=== PATIENT | female | born 1995 | race Caucasian/White ===

== ENCOUNTER → 2017-06-23 | Outpatient (CLI) | payer OTHER ==
[~2017-06-23] MED LIST: FERR1TAB62 MT; PRENTAB26 PO
== END | disposition home or self-care (01) ==
LOC: C.LABSPEC 14:28
PROVIDERS: ATTEND Obstetrics & Gynecology
DX: Z34.83 Encounter for supervision of other normal pregnancy, third trimester (principal)

== ENCOUNTER 2017-07-22 02:06 | Inpatient (IN) | payer OTHER ==
[2017-07-22] VITALS (16 sets, daily range): BP systolic 124–138; BP diastolic 74–77; PULSE 64–80; TEMP 36.4–37.5; O2SAT 94–98; Ht 162.6 cm; Wt 105.5 kg
[~2017-07-22] VITALS: Ht 162.6 cm; Wt 105.5 kg
[2017-07-22] MEDS ORDERED: LACTATED RINGER'S 1000ML 1,000 ML IV PRN (04:37)
[2017-07-22] MEDS ORDERED: LACTATED RINGER'S 1000ML 1,000 ML IV SCH (04:37)
[2017-07-22] MEDS ORDERED: PENICILLIN G POTASSIUM IV 3 MU in DEXTROSE 5% 100ML 100 ML IV PRN (04:45)
[2017-07-22] MEDS ORDERED: PENICILLIN G POTASSIUM IV 6 MU in DEXTROSE 5% 250ML 250 ML IV ONE (04:45)
[2017-07-22 05:12] LABS: HEMATOCRIT 39.8 % (37-47); HEMOGLOBIN 13.9 g/dL (12.0-16.0); MEAN CELL VOLUME 88.4 fL (80-100); MEAN CORPUSCULAR HEMOGLOBIN 30.9 pg (25-34); MEAN CORPUSCULAR HGB CONC 34.9 g/dl (32-36); PLATELET COUNT 219 K/uL (130-400); RED CELL DISTRIBUTION WIDTH CV 14.4 % (11.5-14.5); RED CELL DISTRIBUTION WIDTH SD 46.7 fL (36.4-46.3); WHITE BLOOD COUNT 14.33 K/uL (4.8-10.8)
[2017-07-22] MEDS ORDERED: CITRIC ACID/SODIUM CITRATE 15 ML UDC PO ONE (05:30)
[2017-07-22] MEDS ORDERED: OXYTOCIN INJ 10 UNITS/ML VIAL ONE ×4 (05:40→06:19)
[2017-07-22] MEDS ORDERED: MoRPHine SULFATE PF 1 MG/ML 10 ML AMP/VIAL ONE (05:46)
[2017-07-22] MEDS ORDERED: FENTANYL CITRATE INJ 50 MCG/1 ML 2 ML VIAL ONE (05:46)
[2017-07-22] MEDS ORDERED: CLINDAMYCIN IV 900 MG in DEXTROSE 5% 100ML 100 ML IV SCH (06:00)
[2017-07-22] MEDS ORDERED: NALOXONE HCL INJ 1 MG in SODIUM CHLORIDE 0.9% 1000ML 1,000 ML IV PRN ×2 (06:16→07:10)
[2017-07-22] MEDS ORDERED: NALOXONE HCL INJ 0.08 MG in SYRINGE 1.8 ML IV PRN ×2 (06:16→07:10)
[2017-07-22] MEDS ORDERED: LACTATED RINGER'S 1000ML 500 ML IV PRN ×2 (06:16→07:10)
[2017-07-22] MEDS ORDERED: SODIUM CHLORIDE 0.9% 1000ML 1,000 ML IV PRN ×2 (06:16→07:10)
[2017-07-22] MEDS ORDERED: NALBUPHINE HCL INJ 10 MG/ML AMP IV PRN ×2 (06:30→07:15)
[2017-07-22] MEDS ORDERED: KETOROLAC TROMETHAMINE 30 MG/ML VIAL IV. PRN ×2 (06:30→23:59)
[2017-07-22] MEDS ORDERED: EpHEDrine SULFATE INJ 50 MG/ML AMP IV PRN ×3 (06:30→07:15)
[2017-07-22] MEDS ORDERED: MoRPHine SULFATE PF 1 MG/ML 10 ML AMP/VIAL EPI PRN ×2 (06:30→07:15)
[2017-07-22] MEDS ORDERED: MoRPHine SULFATE 2 MG/ML CARP IV PRN ×2 (06:30→07:15)
[2017-07-22] MEDS ORDERED: MEPERIDINE HCL 25 MG/ML CARP IV PRN (06:30)
[2017-07-22] MEDS ORDERED: DiphenhydrAMINE HCL 50 MG/ML VIAL IV PRN ×3 (06:30→23:59)
[2017-07-22] MEDS ORDERED: NO NARCOTICS OR SEDATIVES SCH ×2 (06:30→07:15)
[2017-07-22] MEDS ORDERED: ONDANSETRON INJ 2 MG/ML 2 ML VIAL IV PRN ×4 (06:30→23:59)
[2017-07-22] MEDS ORDERED: NALOXONE HCL 0.4 MG/1 ML VIAL/CARP IV PRN ×2 (06:30→07:15)
[2017-07-22] MEDS ORDERED: PHENYLEPHRINE 100MCG/ML 5ML SYR ONE (06:31)
--- NOTE | 2017-07-22 06:31 | HISTORY & PHYSICAL EXAMINATION ---
DATE OF ADMISSION: 07/22/2017 CHIEF COMPLAINT: Intrauterine , 39+ weeks gestation, elvira breech presentation. HISTORY OF PRESENT ILLNESS: The patient is a 21-year-old 2, para 1, general health is good, due date is 07/25/2017, has had no problems. She delivered her first child in 2012, 7 pounds 1 ounce female at 39 weeks, pushed for only 20 minutes. Present she was admitted in labor. She was walked for a while, she started to dilate. She went from about 3-5, was given IV penicillin for positive beta strep status. When I checked her, membranes were tight and bulging. Once the membranes ruptured, you could feel that she had a elvira breech presentation and presently being scheduled for a stat section. ALLERGIES: SHE IS ALLERGIC TO CEPHALOSPORINS. PAST SURGICAL HISTORY: She had her wisdom teeth removed. PAST MEDICAL HISTORY: She has a girl, 4 years old in good health. SOCIAL HISTORY: No smoking. No excessive alcohol intake. Works as a nurse in [employer]. FAMILY HISTORY: Mom is 50 in good health. Father is 50 in good health. Two sisters in good health. REVIEW OF SYSTEMS: HEAD: No symptoms of frequent or severe headaches. EYES: No symptoms of blurred vision or double vision. EARS: No symptoms of frequent ear infections, difficulty hearing. NOSE: No symptoms of frequent nosebleeds, difficulty breathing through her nose. THROAT: No symptoms of frequent or severe sore throats, difficulty swallowing. RESPIRATORY SYSTEM: No history of asthma, chest pain, shortness of breath. PHYSICAL EXAMINATION: GENERAL: Well developed, well-nourished 21-year-old white female, alert, oriented x3, cooperative in no acute distress, appears stated age. EYES: Conjunctivae are pink, sclerae white, no evidence of jaundice. EARS: Had normal light reflex bilaterally. HEART: Had regular rhythm, S2 and S1 are normal. BREASTS: Normal. ABDOMEN: Consistent with a term size fetus. PELVIC: Revealed elvira breech presentation at 6 cm at about a -3 station. MUSCULOSKELETAL: Revealed no calf tenderness. IMPRESSIONS OF THIS CASE: Breech presentation, active labor.
[2017-07-22] MEDS ORDERED: ONDANSETRON INJ 2 MG/ML 2 ML VIAL ONE (06:50)
[2017-07-22] MEDS ORDERED: MAGNESIUM HYDROXIDE SUSP 30 ML UDC PO PRN (07:00)
[2017-07-22] MEDS ORDERED: SUPERCREAM 0.870 % 15GM JAR EXT PRN (07:00)
[2017-07-22] MEDS ORDERED: BENZOCAINE 20% AER SPR 82.5 GM CAN EXT PRN (07:00)
[2017-07-22] MEDS ORDERED: LANOLIN OINT EXT PRN (07:00)
[2017-07-22] MEDS ORDERED: SENNA 8.6 MG TAB PO PRN (07:00)
[2017-07-22] MEDS ORDERED: DIPHTHERIA/TETANUS/PERTUSSIS 0.5 ML SYR/VIAL IM. ONE (07:00)
[2017-07-22] MEDS ORDERED: HYDROCORTISONE ACETATE 25 MG SUPP PR PRN (07:00)
--- NOTE | 2017-07-22 07:11 | OPERATIVE REPORT ---
DATE OF OPERATION: 07/22/2017 INDICATIONS FOR SURGERY: Uriel breech presentation, active labor. PREOPERATIVE DIAGNOSIS: Uriel breech presentation, active labor. POSTOPERATIVE DIAGNOSES: Same, delivered a live female , breech presentation confirmed. SURGEON: Samantha Hernandez MD. DIE TRIMMER: Fazal Haynes MD. ESTIMATED BLOOD LOSS: 700 mL. ANESTHESIA: Spinal. OPERATIVE FINDINGS AND PROCEDURE: The patient was brought to the OR table, correctly identified by armband and conversation. Compression stockings had been applied. Powell catheter had been inserted aseptically in the bladder connected to gravity drainage. Spinal anesthesia was administered. The patient was positioned on the OR table. Lower abdomen and umbilical area where painted with Betadine and draped in usual sterile fashion. Adequacy of the anesthesia was tested. Pfannenstiel incision was made, carried down to the anterior fascia by sharp dissection. Hemostasis was secured by electrocauterization. Fascia was incised transversely from the underlying muscle by blunt and sharp dissection. Recti muscles were in the midline exposing the peritoneum which was carefully raised and entered. Bladder blade was used to expose the lower uterine segment. An incision was made above the vesicouterine fold. Bladder was undermined bluntly and pushed out of the operative field. Lower uterine segment was scored with a knife and then entered with scissors. Clear amniotic fluid was seen coming through the incision at this time. Uriel breech presentation was noted. The breech was delivered, then the chest, the 2 arms were reduced and then the head was delivered. Cord was clamped and cut and the infant was attended to by the communications maintainer, Dr. Wilson who scrubbed and present at the time of delivery. Cord blood was taken. Placenta was removed manually. Uterus, tubes, and ovaries were removed from the abdominal cavity. Uterine cavity was wiped clean with a clean sponge. The myometrial defect was grasped with a ring forceps and then a chromic gut suture was used to approximate the myometrial defect with continuous interlocking sutures of chromic. Following this, a heavy suture of Vicryl was used to approximate the fascial layer over the myometrial approximation and a horizontal suture was placed below the myometrial defect on the left side to control the bleeding and about 3 [id number] sutures of Vicryl used to further approximate the myometrial edges. After good hemostasis, peritoneal edges were restored with a running 3-0 chromic. The pelvis was cleansed of all blood clots and debris. Suture line was checked and found to be hemostatic. Uterus, tubes, and ovaries were reinserted into the abdominal cavity and careful anatomical approximation of the anterior abdominal wall was performed. Peritoneum was closed with a mattress suture of chromic catgut. Recti muscles were approximated with interrupted [id number] suture of chromic catgut. The fascia was closed with continuous interlocking suture of Vicryl on each side, tied in the midline. SubQ was approximated with a running plain and skin edges were approximated with staple clips. I attest to the content of the Intraoperative Record and any orders documented therein. Any exception s are noted below.
[2017-07-22] MEDS ORDERED: PROMETHAZINE HCL INJ 25 MG in SODIUM CHLORIDE 0.9% 50ML 50 ML IV PRN (07:15)
[2017-07-22] MEDS ORDERED: ACETAMINOPHEN IV 100 ML IV PRN (07:15)
[2017-07-22] MEDS ORDERED: ATROPINE SULFATE 0.1 MG/ML 5ML SYR IV PRN (07:15)
[2017-07-22] MEDS: PRENATAL VITAMIN TAB PO SCH (08:00)
[2017-07-22] MEDS: FERROUS SULFATE 325 MG TAB PO SCH (08:00)
[2017-07-22] MEDS: DOCUSATE SODIUM 100 MG CAP PO SCH ×2 (08:00→20:08)
[2017-07-22] MEDS: OXYTOCIN INJ 20 UNITS in LACTATED RINGER'S 1000ML 1,000 ML IV SCH ×2 (08:51→17:42)
[2017-07-22] MEDS: SIMETHICONE 80 MG CHEW PO SCH ×4 (08:57→20:08)
--- NOTE | 2017-07-22 10:04 | Anesthesiology Progress Note ---
Anesthesia Post Op Note Date & Time Jul 22, 2017 at 10:03 Notes Mental Status: alert / awake / arousable, participated in evaluation Pt Amnestic to Procedure: Yes Nausea / Vomiting: improving with treatment Pain: adequately controlled Airway Patency, RR, SpO2: stable & adequate BP & HR: stable & adequate Hydration State: stable & adequate Neuraxial Anesthesia: was administered, sensory block is resolving Anesthetic Complications: no major complications apparent
[2017-07-22] MEDS: KETOROLAC TROMETHAMINE 30 MG/ML VIAL IV. PRN ×2 (11:29→17:06)
--- NOTE | 2017-07-22 13:49 | Anesthesia Procedure Note ---
Anesthesia Epidural Removal Nt Date & Time Jul 22, 2017 at 13:47 Vital Signs Pain Intensity: 4.0 Vital Signs Past 12 Hours Date Time Temp Pulse Resp B/P (MAP) Pulse Ox O2 Delivery O2 Flow Rate FiO2 07/22/17 12:30 20 95 07/22/17 12:30 36.4 73 20 126/77 (93) 94 Room Air 07/22/17 11:30 20 97 07/22/17 10:30 18 95 07/22/17 10:00 36.7 67 18 125/76 (92) 97 Room Air 07/22/17 09:30 98 Room Air 07/22/17 09:30 36.4 64 18 124/74 (91) 98 Room Air 07/22/17 09:30 18 98 Notes Mental Status: alert / awake / arousable, participated in evaluation Nausea / Vomiting: adequately controlled Pain: adequately controlled Airway Patency, RR, SpO2: stable & adequate BP & HR: stable & adequate Hydration State: stable & adequate Neuraxial Anesthesia: was administered, sensory block is resolving Anesthetic Complications: no major complications apparent, pt satisfied with anesthetic care Epidural: removed without complications, with tip intact
[2017-07-22] MEDS ORDERED: NURSING VERBAL MED ORDER ONE (18:30)
[2017-07-22] MEDS: CALCIUM CARBONATE 500 MG CHEWABLE PO PRN (21:27)
[2017-07-22] MEDS ORDERED: OXYCODONE/ACETAMINOPHEN 5-325 TAB PO PRN (23:59)
[2017-07-22] MEDS ORDERED: DC INTRASPINAL MORPHINE ONE (23:59)
[2017-07-22] MEDS ORDERED: MEPERIDINE HCL 50 MG/ML CARP IV PRN ×2 (23:59)
[2017-07-22] MEDS ORDERED: ZOLPIDEM TARTRATE 5 MG TAB PO PRN (23:59)
[2017-07-23 01:00] VITALS: BP_SYST 127; BP_SYST 128; BP_DIAS 78; PULSE 91; TEMP 37.4; O2SAT 98
[2017-07-23] MEDS: IBUPROFEN 600 MG TAB PO PRN ×5 (01:00→21:28)
[2017-07-23] MEDS: OXYTOCIN INJ 20 UNITS in LACTATED RINGER'S 1000ML 1,000 ML IV SCH (01:54)
[2017-07-23] MEDS: CALCIUM CARBONATE 500 MG CHEWABLE PO PRN (01:55)
[2017-07-23] MEDS ORDERED: KETOROLAC TROMETHAMINE 30 MG/ML VIAL IV. PRN (02:00)
[2017-07-23] MEDS ORDERED: DiphenhydrAMINE HCL 50 MG/ML VIAL IV PRN (02:00)
[2017-07-23] MEDS ORDERED: OXYCODONE/ACETAMINOPHEN 5-325 TAB PO PRN ×2 (02:00)
[2017-07-23] MEDS ORDERED: DC INTRASPINAL MORPHINE ONE (02:00)
[2017-07-23] MEDS ORDERED: ONDANSETRON INJ 2 MG/ML 2 ML VIAL IV PRN (02:00)
[2017-07-23] MEDS ORDERED: ZOLPIDEM TARTRATE 5 MG TAB PO PRN (02:00)
[2017-07-23] MEDS ORDERED: MEPERIDINE HCL 50 MG/ML CARP IV PRN ×2 (02:00)
[2017-07-23 04:20] VITALS: BP 116/70; PULSE 80; TEMP 37.4; O2SAT 95
[2017-07-23 06:04] LABS: BASO % 0.1 %; BASO ABS # 0.02 K/uL (0-0.2); EOS % 0.4 %; EOS ABS # 0.06 K/uL (0-0.5); HEMATOCRIT 32.7 % (37-47); IG# 0.05 K/uL (0.00-0.02); LYMPH % 13.8 %; LYMPH ABS # 1.86 K/uL (1.2-3.4); MEAN CELL VOLUME 88.4 fL (80-100); MEAN CORPUSCULAR HEMOGLOBIN 29.7 pg (25-34); MEAN CORPUSCULAR HGB CONC 33.6 g/dl (32-36); MEAN PLATELET VOLUME 9.4 fL (7.4-10.4); MONO % 8.4 %; MONO ABS # 1.13 K/uL (0.11-0.59); NEUT % 76.9 %; NEUT ABS # 10.32 K/uL (1.4-6.5); PLATELET COUNT 178 K/uL (130-400); RED CELL DISTRIBUTION WIDTH CV 14.6 % (11.5-14.5); RED CELL DISTRIBUTION WIDTH SD 47.1 fL (36.4-46.3); WHITE BLOOD COUNT 13.44 K/uL (4.8-10.8)
[2017-07-23 07:30] VITALS: BP 122/76; PULSE 85; TEMP 36.8; O2SAT 98
--- NOTE | 2017-07-23 09:00 | Progress Note ---
Subjective Jul 23, 2017. Subjective conversation w/ patient Ambulation: ambulating normally Voiding: no voiding problems Passing Gas: No Diet Tolerance: Clear Liquids Lochia: Small Feeding Type: Breast Feeding Review of Systems Constitutional: + fever Objective Vital Signs Date Time Temp Pulse Resp B/P (MAP) Pulse Ox O2 Delivery O2 Flow Rate FiO2 07/23/17 04:20 37.4 80 18 116/70 (85) 95 Room Air 07/23/17 01:00 37.4 91 18 127/78 (94) 98 Room Air 07/23/17 01:00 98 Room Air 07/22/17 23:15 18 96 07/22/17 22:30 18 96 07/22/17 21:15 16 95 07/22/17 20:20 18 94 07/22/17 19:30 37.5 71 18 138/77 (97) 97 Room Air 07/22/17 19:30 18 97 07/22/17 18:15 20 95 07/22/17 17:20 18 96 07/22/17 16:20 20 95 07/22/17 15:20 36.8 80 18 128/76 (93) 97 Room Air 07/22/17 15:20 18 97 07/22/17 15:20 97 Room Air 07/22/17 14:30 20 97 07/22/17 13:30 18 95 07/22/17 12:30 20 95 07/22/17 12:30 36.4 73 20 126/77 (93) 94 Room Air 07/22/17 11:30 20 97 07/22/17 10:30 18 95 07/22/17 10:00 36.7 67 18 125/76 (92) 97 Room Air 07/22/17 09:30 98 Room Air 07/22/17 09:30 36.4 64 18 124/74 (91) 98 Room Air 07/22/17 09:30 18 98 Physical Exam General Appearance: WELL-APPEARING Respiratory/Chest: lungs clear Abdomen: non tender, + abnormal bowel sounds Fundus: Firm, Non-Tender Incision Description: Clean, Dry & Intact Extremities: no pedal edema, no calf tenderness Laboratory Results Last 24 Hours Test 07/23/17 05:49 White Blood Count 13.44 K/uL Red Blood Count 3.70 M/uL Hemoglobin 11.0 g/dL Hematocrit 32.7 % Mean Corpuscular Volume 88.4 fL Mean Corpuscular Hemoglobin 29.7 pg Mean Corpuscular Hemoglobin Concent 33.6 g/dl Platelet Count 178 K/uL Mean Platelet Volume 9.4 fL Neutrophils (%) (Auto) 76.9 % Lymphocytes (%) (Auto) 13.8 % Monocytes (%) (Auto) 8.4 % Eosinophils (%) (Auto) 0.4 % Basophils (%) (Auto) 0.1 % Neutrophils # (Auto) 10.32 K/uL Lymphocytes # (Auto) 1.86 K/uL Monocytes # (Auto) 1.13 K/uL Eosinophils # (Auto) 0.06 K/uL Basophils # (Auto) 0.02 K/uL RDW Standard Deviation 47.1 fL RDW Coefficient of Variation 14.6 % Immature Granulocyte % (Auto) 0.4 % Immature Granulocyte # (Auto) 0.05 K/uL Assessment and Plan Post-Op Day#: 1 Continue Routine Care: hypoactive bowel sounds
[2017-07-23] MEDS: PRENATAL VITAMIN TAB PO SCH (09:01)
[2017-07-23] MEDS: DOCUSATE SODIUM 100 MG CAP PO SCH ×2 (09:01→20:28)
[2017-07-23] MEDS: FERROUS SULFATE 325 MG TAB PO SCH (09:01)
[2017-07-23] MEDS: SIMETHICONE 80 MG CHEW PO SCH ×4 (09:01→20:28)
[2017-07-23] MEDS: OXYCODONE/ACETAMINOPHEN 5-325 TAB PO PRN ×3 (09:02→21:28)
[2017-07-23 15:30] VITALS: BP 111/72; PULSE 79; TEMP 37.3; O2SAT 95; O2SAT 96
[2017-07-23] MEDS ORDERED: BISACODYL 5 MG TABEC PO ONE (22:00)
[2017-07-23 23:45] VITALS: BP 120/70; PULSE 80; TEMP 36.8; O2SAT 95
[2017-07-24] MEDS: IBUPROFEN 600 MG TAB PO PRN ×3 (02:22→10:36)
[2017-07-24] MEDS: OXYCODONE/ACETAMINOPHEN 5-325 TAB PO PRN ×4 (02:22→10:36)
[2017-07-24] MEDS ORDERED: COUGH DROP (SUGAR FREE) LOZ 24 LOZ/1 BOX LOZ ONE (04:34)
[2017-07-24] MEDS ORDERED: BISACODYL 10 MG SUPP PR PRN (07:00)
--- NOTE | 2017-07-24 07:56 | Progress Note ---
Subjective Jul 24, 2017. Subjective conversation w/ patient Ambulation: ambulating normally Voiding: no voiding problems Passing Gas: Yes Diet Tolerance: Regular Diet Lochia: Small Feeding Type: Breast Feeding Review of Systems Constitutional: + fever Objective Vital Signs Date Time Temp Pulse Resp B/P (MAP) Pulse Ox O2 Delivery O2 Flow Rate FiO2 07/23/17 23:45 95 Room Air 07/23/17 23:45 36.8 80 18 120/70 (87) 95 Room Air 07/23/17 15:30 96 Room Air 07/23/17 15:30 37.3 79 18 111/72 (85) 95 Room Air Physical Exam General Appearance: WELL-APPEARING Respiratory/Chest: lungs clear Abdomen: normal bowel sounds, non tender Fundus: Firm, Non-Tender Incision Description: Clean, Dry & Intact Extremities: no pedal edema, no calf tenderness Assessment and Plan Post-Op Day#: 2
--- NOTE | 2017-07-24 07:58 | Discharge Instructions ---
Discharge Instructions Date of Service Jul 24, 2017. Admission Reason for Admission: LABOR Discharge Discharge Diagnosis / Problem: breech presentation Discharge Goals Goal(s): Routine recovery after Activity Recommendations Activity Limitations: as noted below ACTIVITY RECOMMENDATIONS: * Gradual return to full activity over the next 2-3 weeks. * No lifting - nothing heavier than baby over the next 2-3 weeks. * Do not engage in vigorous exercise, sexual activity or sports for 6 weeks. * Do not drive or operate any motorized equipment for 14 days. * You may shower/bathe daily. DIET: Resume Previous Diet If Breast-feeding: * Increase caloric intake by 500 calories, eat 3 well balanced meals, 2 high protein snacks a day and drink 6-8 8oz. glasses of fluid per day. BREAST CARE: If you are not breast feeding: * Wear a supportive bra 24 hours a day for one to two weeks. * Avoid stimulating your breasts and nipples as much as possible during the first few weeks after delivery. * When taking a shower, have the warm water hit your back, not breasts. * When your breasts feel full, apply ice packs. Usually three to four times a day helps ease the discomfort. * Take a mild pain medication (Tylenol / Motrin) when you are uncomfortable. If breast feeding: * Use breast milk to lubricate nipples. Lansinoh cream may be used for sore nipples. You do not need to remove cream prior to breast feeding. If using a different brand of cream, check the label for directions regarding removal of cream prior to nursing. * Wear a supportive bra. * If having problems with breasts or breast feeding, call a property consultant or your health care provider. VITAMINS: * One tablet daily. Continue taking while or until you have your check up in 6 weeks. SPECIAL CARE INSTRUCTIONS: * Vaginal rest (no tampons, douching, intercourse) until after doctor's visit. * control as discussed with doctor. * Verbalizes understanding of car seat law as reviewed with patient by nursing. * Car Seat hand-out given and reviewed with patient by nursing. * Shaken baby information reviewed with patient by nursing. Call you doctor if: * Heavy bleeding (saturating a pad an hour) or passing clots the size of your fist. Bleeding has a foul smelling odor. * A fever greater than 100.4 degrees F (38 degrees C) on two occasions four hours apart and/or chills. * Unusual pain in the pelvic or vaginal areas. Pain should improve each day . * Call the doctor for any increased redness, drainage or swelling around the incision and any pain unrelieved by prescribed pain medication. * Signs and symptoms of phlebitis(possible blood clots forming in the veins): leg pain, warm, red or swollen area on leg. * "Baby Blues" lasting longer than two weeks. If you have any questions or concerns, call your health care practitioner at [phone]. FOLLOW-UP VISIT: Follow-up visit for examination in 6 weeks. Incision check (staple removal) in 1 week. Please call office at [phone] if not already scheduled. . Current Hospital Diet ACTIVITY RECOMMENDATIONS: * Gradual return to full activity over the next 2-3 weeks. * No lifting - nothing heavier than baby over the next 2-3 weeks. * Do not engage in vigorous exercise, sexual activity or sports for 6 weeks. * Do not drive or operate any motorized equipment for 14 days. * You may shower/bathe daily. DIET: Resume Previous Diet If Breast-feeding: * Increase caloric intake by 500 calories, eat 3 well balanced meals, 2 high protein snacks a day and drink 6-8 8oz. glasses of fluid per day. BREAST CARE: If you are not breast feeding: * Wear a supportive bra 24 hours a day for one to two weeks. * Avoid stimulating your breasts and nipples as much as possible during the first few weeks after delivery. * When taking a shower, have the warm water hit your back, not breasts. * When your breasts feel full, apply ice packs. Usually three to four times a day helps ease the discomfort. * Take a mild pain medication (Tylenol / Motrin) when you are uncomfortable. If breast feeding: * Use breast milk to lubricate nipples. Lansinoh cream may be used for sore nipples. You do not need to remove cream prior to breast feeding. If using a different brand of cream, check the label for directions regarding removal of cream prior to nursing. * Wear a supportive bra. * If having problems with breasts or breast feeding, call a property consultant or your health care provider. VITAMINS: * One tablet daily. Continue taking while or until you have your check up in 6 weeks. SPECIAL CARE INSTRUCTIONS: * Vaginal rest (no tampons, douching, intercourse) until after doctor's visit. * control as discussed with doctor. * Verbalizes understanding of car seat law as reviewed with patient by nursing. * Car Seat hand-out given and reviewed with patient by nursing. * Shaken baby information reviewed with patient by nursing. Call you doctor if: * Heavy bleeding (saturating a pad an hour) or passing clots the size of your fist. Bleeding has a foul smelling odor. * A fever greater than 100.4 degrees F (38 degrees C) on two occasions four hours apart and/or chills. * Unusual pain in the pelvic or vaginal areas. Pain should improve each day . * Call the doctor for any increased redness, drainage or swelling around the incision and any pain unrelieved by prescribed pain medication. * Signs and symptoms of phlebitis(possible blood clots forming in the veins): leg pain, warm, red or swollen area on leg. * "Baby Blues" lasting longer than two weeks. If you have any questions or concerns, call your health care practitioner at [phone]. FOLLOW-UP VISIT: Follow-up visit for examination in 6 weeks. Incision check (staple removal) in 1 week. Please call office at [phone] if not already scheduled. Patient's current hospital diet: Regular OB Diet Discharge Diet Recommended Diet: Regular Diet Procedures Procedures Performed: Primary Caesarean Section for the of a viable female child at 0604. Pending Studies Studies pending at discharge: no Medical Emergencies . Who to Call and When: Medical Emergencies: If at any time you feel your situation is an emergency, please call 911 immediately. . Non-Emergent Contact Non-Emergency issues call your: Checking Clerk Call Non-Emergent contact if: temperature is above 100.5 . . "Provider Documentation" section prepared by Dinesh Hernandez. . VTE Core Measure Inpt VTE Proph given/why not?: Treatment not indicated
[2017-07-24 08:00] VITALS: BP 118/77; PULSE 73; TEMP 36.9; O2SAT 96
--- NOTE | 2017-07-24 08:19 | DISCHARGE SUMMARY ---
Mrs. Scherer followed in my office for care and delivery. She was admitted to the labor floor in active labor at term and after I checked her membranes ruptured, she was found to have a breech presentation. She then had an emergency low segment section, which was performed under spinal. Procedure went well. Postop course was smooth. She remained afebrile. Her bowel sounds returned promptly. Preoperative hemoglobin was 13.9 and hematocrit 39.8. Postoperative hemoglobin was 11.0 and hematocrit 32.7. She did request discharge early and on the second postoperative day, she was given prescriptions for Percocet and Motrin and told to call the office if she had a temperature over 100 or any heavy bleeding and to call the office for removal of claudia.
[2017-07-24] MEDS: DOCUSATE SODIUM 100 MG CAP PO SCH (08:41)
[2017-07-24] MEDS: PRENATAL VITAMIN TAB PO SCH (08:41)
[2017-07-24] MEDS: SIMETHICONE 80 MG CHEW PO SCH (08:41)
[2017-07-24] MEDS: FERROUS SULFATE 325 MG TAB PO SCH (08:41)
[2017-07-24 11:20] VITALS: BP_DIAS 77; PULSE 73; TEMP 36.9
== END 2017-07-24 11:20 | disposition home or self-care (01) | DRG 766 ==
LOC: C.OPB 02:06 → C.LD 02:07 → C.OPB 04:40 → C.OBG 10:01 → EDSTATUS 07-25 02:04
PROVIDERS: ADMIT Obstetrics & Gynecology; ATTEND Obstetrics & Gynecology
PROC: 10D00Z1 Extraction of Products of Conception, Low, Open Approach (ICD-10-PCS; principal; 2017-07-22 05:30)
DX: O32.1XX0 Maternal care for breech presentation, not applicable or unspecified (principal); Z37.0 Single live birth; Z3A.39 39 weeks gestation of pregnancy; Z88.1 Allergy status to other antibiotic agents

== ENCOUNTER 2018-01-07 09:31 | Emergency (ER) | payer OTHER ==
[~2018-01-07] VITALS: Ht 162.6 cm; Wt 87.8 kg
[~2018-01-07 09:31] MED LIST changes: -FERR1TAB62 MT
[2018-01-07 09:37] VITALS: TEMP 37.3; Ht 162.6 cm; Wt 87.8 kg
[2018-01-07 10:00] LABS: BASO % 0.5 %; BASO ABS # 0.05 K/uL (0-0.2); EOS % 0.1 %; EOS ABS # 0.01 K/uL (0-0.5); HEMATOCRIT 44.6 % (37-47); HEMOGLOBIN 15.4 g/dL (12.0-16.0); IG# 0.04 K/uL (0.00-0.02); LYMPH % 21.7 %; MEAN CELL VOLUME 82.7 fL (80-100); MEAN CORPUSCULAR HEMOGLOBIN 28.6 pg (25-34); MEAN CORPUSCULAR HGB CONC 34.5 g/dl (32-36); MEAN PLATELET VOLUME 9.1 fL (7.4-10.4); MONO % 15.6 %; MONO ABS # 1.51 K/uL (0.11-0.59); NEUT % 61.7 %; NEUT ABS # 5.97 K/uL (1.4-6.5); PLATELET COUNT 326 K/uL (130-400); RED CELL DISTRIBUTION WIDTH CV 13.9 % (11.5-14.5); RED CELL DISTRIBUTION WIDTH SD 41.9 fL (36.4-46.3); WHITE BLOOD COUNT 9.68 K/uL (4.8-10.8)
--- NOTE | 2018-01-07 10:08 | EMERGENCY ROOM VISIT NOTE ---
History Report prepared by Agnieszka: Leonila Garcia Under the Supervision of: Dr. Dipak Lay M.D. First contact with patient: 09:53 Chief Complaint: DIARRHEA Stated Complaint: DIARRHEA,VOMITING Nursing Triage Summary: pt reports nausea, vomitting, diarrhea, abd cramping x 3 days. History of Present Illness The patient is a 22 year old female who presents to the Emergency Room with complaints of diarrhea and vomiting over the last 4 days. The patient also reports having abdominal cramps with it. She states concern for dehydration as she has been unable to keep water down. She denies having black or bloody stools or blood in her urine or vomit. 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 The patient reports having several bowel movements per hour and states that her vomiting usually begins when she has a bowel movement. The patient denies vaginal discharge or bleeding. The patient denies being around anyone sick or eating at new restaurants. She denies a history of colitis or Crohn's Disease. She reports a history of a but denies other abdominal surgeries. No recent antibiotic usage. She reports that she has 2 children and states that there is a possibility of . The patient denies drug use, drinking, and smoking. Source of History: patient Onset: over the last 4 days Position: other (generalized) Quality: other (diarrhea and vomiting) Associated Symptoms: + abdominal pain (cramps), No urinary symptoms (denies blood in urine) Review of Systems See HPI for pertinent positives and negatives. A total of ten systems were reviewed and were otherwise negative. Past Medical & Surgical Surgical Problems: (1) History of Family History Patient reports no known family medical history. Social History Smoking Status: Never Smoker Marital Status: Housing Status: lives with family Current/Historical Medications Scheduled Ondasetron Odt (Zofran Odt), 4 MG SL TID Allergies Coded Allergies: Cefprozil (Verified Allergy, Intermediate, RASH, 01/07/18) Physical Exam Vital Signs Date Time Temp Pulse Resp B/P (MAP) Pulse Ox O2 Delivery O2 Flow Rate FiO2 01/07/18 12:11 83 121/62 96 01/07/18 10:17 90 18 110/72 98 Room Air 01/07/18 09:37 37.3 105 18 130/86 96 Room Air Physical Exam Physical Exam GENERAL: She is oriented to person, place, and time. She appears well- developed and well-nourished. She does not appear distressed. HENT: Exam performed. Head: Normocephalic and atraumatic. Right Ear: External ear normal. No mastoid tenderness. Left Ear: External ear normal. No mastoid tenderness. Mouth/Throat: The oropharynx is clear and moist. No trismus in the jaw. No dental abscesses or uvula swelling. No oropharyngeal exudate or tonsillar abscesses. EYES: Conjunctivae and EOM are normal. Pupils are equal, round, and reactive to light. Right eye exhibits no discharge. Left eye exhibits no discharge. No scleral icterus. NECK: Normal range of motion. Neck supple. No JVD present. No spinous process tenderness present. No carotid bruit present. No rigidity. No tracheal deviation and normal range of motion present. No Brudzinski's sign and no Kernig 's sign noted. CV: Normal rate, regular rhythm, normal heart sounds and intact distal pulses. There is no peripheral edema. Palpable radial pulses bue. PULM/CHEST: Effort normal and breath sounds normal. No respiratory distress. No stridor. She has no wheezes. She has no rales. Chest Wall: She exhibits no tenderness. ABD: The abdomen is soft. Bowel sounds are normal. She has no distension. No mass is present. There is no tenderness. There is no rebound, no guarding, no Leija's sign and no tenderness at McBurney's point. Rovsig negative MUSC/SKEL: Normal range of motion. There is no peripheral edema, tenderness or deformity. LYMPH: No cervical adenopathy. NEURO: She is alert and oriented to person, place, and time. She has normal strength. No cranial nerve deficit or sensory deficit. Coordination and gait normal. GCS eye subscore is 4. GCS verbal subscore is 5. GCS motor subscore is 6. Cerebellar tests wnl. SKIN: Skin is warm and dry. She is not diaphoretic. PSYCH: She has a normal mood and affect. Behavior is normal. Judgment and thought content normal. Medical Decision & Procedures Laboratory Results 01/07/18 09:50 Red Blood Count 5.39, Mean Corpuscular Volume 82.7, Mean Corpuscular Hemoglobin 28.6, Mean Corpuscular Hemoglobin Concent 34.5, Mean Platelet Volume 9.1, Neutrophils (%) (Auto) 61.7, Lymphocytes (%) (Auto) 21.7, Monocytes (%) (Auto) 15.6, Eosinophils (%) (Auto) 0.1, Basophils (%) (Auto) 0.5, Neutrophils # (Auto ) 5.97, Lymphocytes # (Auto) 2.10, Monocytes # (Auto) 1.51, Eosinophils # (Auto ) 0.01, Basophils # (Auto) 0.05 01/07/18 09:50 Test 01/07/18 09:50 01/07/18 10:53 White Blood Count 9.68 K/uL (4.8-10.8) Red Blood Count 5.39 M/uL (4.2-5.4) Hemoglobin 15.4 g/dL (12.0-16.0) Hematocrit 44.6 % (37-47) Mean Corpuscular Volume 82.7 fL (80-100) Mean Corpuscular Hemoglobin 28.6 pg (25-34) Mean Corpuscular Hemoglobin Concent 34.5 g/dl (32-36) Platelet Count 326 K/uL (130-400) Mean Platelet Volume 9.1 fL (7.4-10.4) Neutrophils (%) (Auto) 61.7 % Lymphocytes (%) (Auto) 21.7 % Monocytes (%) (Auto) 15.6 % Eosinophils (%) (Auto) 0.1 % Basophils (%) (Auto) 0.5 % Neutrophils # (Auto) 5.97 K/uL (1.4-6.5) Lymphocytes # (Auto) 2.10 K/uL (1.2-3.4) Monocytes # (Auto) 1.51 K/uL (0.11-0.59) Eosinophils # (Auto) 0.01 K/uL (0-0.5) Basophils # (Auto) 0.05 K/uL (0-0.2) RDW Standard Deviation 41.9 fL (36.4-46.3) RDW Coefficient of Variation 13.9 % (11.5-14.5) Immature Granulocyte % (Auto) 0.4 % Immature Granulocyte # (Auto) 0.04 K/uL (0.00-0.02) Urine Color DK YELLOW Urine Appearance CLOUDY (CLEAR) Urine pH 5.5 (4.5-7.5) Urine Specific [place] 1.022 (1.000-1.030) Urine Protein TRACE (NEG) Urine Glucose (UA) NEG (NEG) Urine Ketones NEG (NEG) Urine Occult Blood NEG (NEG) Urine Nitrite NEG (NEG) Urine Bilirubin NEG (NEG) Urine Urobilinogen NEG (NEG) Urine Leukocyte Esterase TRACE (NEG) Urine WBC (Auto) 1-5 /hpf (0-5) Urine RBC (Auto) 0-4 /hpf (0-4) Urine Hyaline Casts (Auto) 1-5 /lpf (0-5) Urine Epithelial Cells (Auto) >30 /lpf (0-5) Urine Bacteria (Auto) 1+ (NEG) Urine Pathogenic Casts /lpf (0) Urine Mucus PRESENT (NONE PRSENT) Urine Test NEG (NEG) Anion Gap 7.0 mmol/L (3-11) Est Creatinine Clear Calc Drug Dose 105.8 ml/min Estimated GFR () 106.6 Estimated GFR (Non- 92.0 BUN/Creatinine Ratio 9.5 (10-20) Calcium Level 9.5 mg/dl (8.5-10.1) Total Bilirubin 0.4 mg/dl (0.2-1) Aspartate Amino Transf (AST/SGOT) 29 U/L (15-37) Alanine Aminotransferase (ALT/SGPT) 29 U/L (12-78) Alkaline Phosphatase 102 U/L (45-117) Total Protein 8.6 gm/dl (6.4-8.2) Albumin 3.7 gm/dl (3.4-5.0) Globulin 4.9 gm/dl (2.5-4.0) Albumin/Globulin Ratio 0.8 (0.9-2) Lipase 95 U/L (73-393) Lactic Acid Level 0.7 mmol/L (0.4-2.0) Laboratory results reviewed by mo ED Course 1003: The patient was evaluated in room B8. A complete history and physical exam was performed. 1152: Her vital signs are stable. Her serial abdominal exam had no tenderness with palpation of her abdomen. Labs are within normal limits. She states that she feels better after IV fluids. Her labs were within normal limits and she will follow up with her PCP. She was discharged with antiemetics. DISCHARGE - Plan of care discussed with patient and questions answered. The patient was given both verbal and printed discharge instructions. The patient verbalized understanding and ability to comply. The patient is to seek outpatient follow up as noted in the discharge instructions. The patient verbalized understanding and ability to comply. The patient is discharged in stable condition. The patient was instructed to return for worsening symptoms. Medical Decision Her vital signs are stable. Her serial abdominal exam had no tenderness with palpation of her abdomen. Labs are within normal limits. She states that she feels better after IV fluids. Her labs were within normal limits and she will follow up with her PCP. She was discharged with antiemetics. DISCHARGE - Plan of care discussed with patient and questions answered. The patient was given both verbal and printed discharge instructions. The patient verbalized understanding and ability to comply. The patient is to seek outpatient follow up as noted in the discharge instructions. The patient verbalized understanding and ability to comply. The patient is discharged in stable condition. The patient was instructed to return for worsening symptoms. Medication Reconcilliation Current Medication List: was personally reviewed by me Blood Pressure Screening Patient's blood pressure: Normal blood pressure Impression Primary Impression: Nausea & vomiting Additional Impression: Diarrhea Scribe Attestation The scribe's documentation has been prepared under my direction and personally reviewed by me in its entirety. I confirm that the note above accurately reflects all work, treatment, procedures, and medical decision making performed by me. The chart was completed utilizing [employer] Speech voice recognition software. Grammatical errors, random word insertions, pronoun errors, and incomplete sentences are an occasional consequence of this system due to software limitations, ambient noise, and hardware issues. Any formal questions or concerns about the content, text, or information contained within the body of this dictation should be directly addressed to the physician for clarification. Departure Information Dispostion Home / Self-Care Prescriptions Ondasetron Odt (ZOFRAN ODT) 4 Mg Tab 4 MG SL TID for Nausea, #20 TAB Prov: Dipak Lay M.D. 01/07/18 Referrals No Doctor, Assigned (PCP) Aletha Goldman D.O. Forms HOME CARE DOCUMENTATION FORM, IMPORTANT VISIT INFORMATION, WORK / SCHOOL INSTRUCTIONS Patient Instructions ED Diarrhea Viral, [facility], Vomiting - [facility] Additional Instructions Return to the emergency department if you develop fever greater 100.4, blood in your urine, blood in stool, black tarry stool, severe abdominal pain, or symptoms worsen. Problem Qualifiers Primary Impression: Nausea & vomiting Vomiting type: unspecified Vomiting Intractability: unspecified Qualified Codes: R11.2 - Nausea with vomiting, unspecified Additional Impression: Diarrhea Diarrhea type: unspecified type Qualified Codes: R19.7 - Diarrhea, unspecified
[2018-01-07 10:23] LABS: ALBUMIN 3.7 gm/dl (3.4-5.0); CALCIUM 9.5 mg/dl (8.5-10.1); CREATININE 0.88 mg/dl (0.60-1.20); POTASSIUM 3.4 mmol/L (3.5-5.1); TOTAL PROTEIN 8.6 gm/dl (6.4-8.2)
[2018-01-07] MEDS ORDERED: ONDA4TAB10 SL (11:59)
[2018-01-07 12:11] VITALS: BP 121/62; PULSE 83; O2SAT 96
== END 2018-01-07 12:15 | disposition home or self-care (01) ==
LOC: C.EDB 09:32
DX: R11.2 Nausea with vomiting, unspecified (principal); R19.7 Diarrhea, unspecified

== ENCOUNTER 2019-08-05 08:10 | Inpatient (IN) ==
[2019-08-05] MEDS: LACTATED RINGER'S 1,000 ML IV PRN ×2 (09:08→13:42)
[2019-08-05] MEDS ORDERED: OXYTOCIN 30 UNITS/500 ML BAG IV PRN ×3 (09:26→16:21)
[2019-08-05 09:58] LABS: Hematocrit (blood only) 38.4 % (37-47); Hemoglobin 12.8 g/dL (12.0-16.0); Mean Corpuscular Hemoglobin 29.4 pg (25-34); Mean Corpuscular Volume 88.1 fL (80-100); Platelet Count 305 K/uL (130-400); RDW Coefficient of Variation 14.9 % (11.5-14.5); Red Blood Count 4.36 M/uL (4.2-5.4); White Blood Count 12.39 K/uL (4.8-10.8)
[2019-08-05 10:14] LABS: Mean Corpuscular Hgb Conc 33.3 g/dL (32-36)
--- NOTE | 2019-08-05 12:42 | Anesthesiology Consultation ---
Date of Service August 05, 2019 Assessment & Plan Chart Review Chart Review: Acceptable Risk for Surgery, Patient NOT seen in Pre Admission Testing and Acceptable Risk for Labor Epidural Consults Requested none ASA ASA3 Proposed Anesthesia Anesthesia Type: General and Labor Epidural History Height/Weight Height: 5 ft 4 in Weight: 107.501 kg Allergies Allergy/AdvReac Type Severity Reaction Status Date / Time cefprozil Allergy Intermediate RASH Verified 08/05/19 08:36 Medications Home Medications Medication Instructions Recorded Confirmed Last Taken vit-iron fum-folic ac 1 tab PO DAILY 08/05/19 08/05/19 08/04/19 22:00 [ Vitamin] Active Medications Generic Name Dose Route Start Last Admin Trade Name Freq PRN Reason Stop Dose Admin Lactated Ringer's 1,000 mls @ 125 mls/hr 08/05/19 09:26 08/05/19 09:08 Lr IV 08/07/19 09:25 125 mls/hr .Q8H PRN Administration L&D Protocol Protocol Oxytocin 30 units in 500 mls @ 4 mls/hr 08/05/19 09:29 08/05/19 11:30 Pitocin IV 08/07/19 09:28 0.24 units/hr .Q24H PRN 4 mls/hr Labor Induction/Augmentation Titration Protocol 0.24 UNITS/HR Past Medical History Medical History (Updated 08/05/19 @ 12:41 by Kade Donnelly MD) Morbid obesity with BMI of 40.0-44.9, adult Exercise / Class Metabolic Activity III < 4 Walking/Shop/Light housework Past Surgical History Surgical History H/O: (Acute) Past Anesthesia History No Hx of Anesthesia Complications and No Family Hx of Anesthesia Complications History of PONV No Hx of PONV and No Hx of Motion Sickness Social History Smoking Status: Never smoker Hx Alcohol Use: No Hx Substance Use: No Physical Exam Vital Signs Last Vital Signs Temp 36.9 C 08/05/19 11:26 Pulse 80 08/05/19 12:40 Resp 20 08/05/19 11:26 BP 131/75 08/05/19 12:40 Testing Laboratory Results 08/05/19 09:43 Antibody Screen NEGATIVE 08/05/19 09:43
[2019-08-05] MEDS ORDERED: fentaNYL citrate 100 MCG/2 ML VIAL ONE (13:14)
[2019-08-05] MEDS ORDERED: BUPIVACAINE 0.25% 30 ML VIAL ONE (13:15)
[2019-08-05] MEDS ORDERED: fentaNYL 2MCG/ML ROPIV 1.25MG/ML 100 ML BAG EPI ONE (13:15)
[2019-08-05] MEDS ORDERED: ePHEDrine sulfate 50 MG/ML AMP ONE (13:15)
[2019-08-05] MEDS ORDERED: PROMETHAZINE HCL 25 MG in SODIUM CHLORIDE 0.9% 50 ML IV PRN (14:06)
[2019-08-05] MEDS ORDERED: NALOXONE HCL 1 MG in SODIUM CHLORIDE 0.9% 1000ML 1,000 ML IV PRN (14:06)
[2019-08-05] MEDS ORDERED: NALOXONE HCL 0.4 MG/1 ML VIAL/CARP IV PRN (14:06)
[2019-08-05] MEDS ORDERED: NALBUPHINE HCL INJ 10 MG/ML AMP IV PRN (14:06)
[2019-08-05] MEDS ORDERED: fentaNYL 2MCG/ML ROPIV 1.25MG/ML 100 ML BAG EPI PRN (14:06)
[2019-08-05] MEDS ORDERED: ONDANSETRON INJ 2 MG/ML 2 ML VIAL IV PRN (14:06)
[2019-08-05] MEDS ORDERED: DiphenhydrAMINE HCL 50 MG/ML VIAL IV PRN (14:06)
[2019-08-05] MEDS ORDERED: ePHEDrine sulfate 50 MG/ML AMP IV PRN (14:06)
[2019-08-05] MEDS ORDERED: DIPHTHERIA/TETANUS/PERTUSSIS 0.5 ML SYR/VIAL IM ONE (16:21)
[2019-08-05] MEDS ORDERED: OXYCODONE/ACETAMINOPHEN 5mg/325mg TAB PO PRN (16:21)
[2019-08-05] MEDS ORDERED: BENZOCAINE 20% AER SPR 82.5 GM CAN EXT PRN (16:21)
[2019-08-05] MEDS ORDERED: HYDROCORTISONE ACETATE 25 MG SUPP PR PRN (16:21)
[2019-08-05] MEDS ORDERED: ACETAMINOPHEN W/CODEINE #3 1 TAB PO PRN (16:21)
[2019-08-05] MEDS ORDERED: SUPERCREAM 0.870% 15 GM JAR EXT PRN (16:21)
[2019-08-05] MEDS ORDERED: ACETAMINOPHEN 325 MG TAB PO PRN (16:21)
--- NOTE | 2019-08-05 16:50 | Anesthesia Procedure Note ---
Date of Service August 05, 2019 Anesthesia Post Epidural Note Vital Signs Vital Signs: Temp Pulse Resp BP Pulse Ox 37.0 C 90 20 103/53 L 96 08/05/19 15:00 08/05/19 16:34 08/05/19 16:34 08/05/19 16:34 08/05/19 16:17 Pain Intensity Bilateral Abdomen: Pain Intensity: 0 Notes Mental Status: alert / awake / arousable Nausea / Vomiting: adequately controlled Pain: adequately controlled Airway Patency, RR, SpO2: stable & adequate BP & HR: stable & adequate Hydration State: stable & adequate Neuraxial Anesthesia: was administered and sensory block is resolving Anesthetic Complications: no major complications apparent Epidural: Removed without complications and With tip intact
[2019-08-05] MEDS: DOCUSATE SODIUM 100 MG CAP PO SCH (20:46)
[2019-08-05] MEDS: IBUPROFEN 600 MG TAB PO PRN (22:10)
--- NOTE | 2019-08-06 01:25 | Delivery Summary ---
DATE OF OPERATION: 08/05/2019 3, para 3. Blood type is A negative, group B strep negative. Due date 08/03/2019, was admitted at 40 weeks 2 days for induction. Her first delivery was a vaginal delivery without any trouble. Second was a due to breech presentation and followed in our office for care and delivery. The head was well applied to the cervix and she was about almost 4 cm plus when she came in for induction. I counseled the patient that she was a good candidate for . When she came into the hospital, we started Pitocin at 1 milliunit and advancing every 20 minutes at 1 milliunit and then until we got a good regular contraction pattern. Ruptured her membranes, fluid was clear. Shortly after that, she had an epidural, continued the Pitocin. She went to full dilatation, delivered a live female via direct occiput anterior position over an intact perineum with about 4 pushes, delivered the shoulders without difficulty. Cord was clamped and cut. Cord blood was taken. With IV Pitocin running, the placenta was removed intact. Estimated blood loss was 100 mL. Apgars were good. The patient tolerated delivery well. MTDD
[2019-08-06] MEDS: IBUPROFEN 600 MG TAB PO PRN ×4 (06:24→20:21)
[2019-08-06 06:25] LABS: Hematocrit (blood only) 37.2 % (37-47); Hemoglobin 12.2 g/dL (12.0-16.0); Mean Corpuscular Hemoglobin 28.8 pg (25-34); Mean Corpuscular Hgb Conc 32.8 g/dL (32-36); Mean Corpuscular Volume 87.7 fL (80-100); Mean Platelet Volume 9.2 fL (7.4-10.4); Platelet Count 277 K/uL (130-400); RDW Coefficient of Variation 14.8 % (11.5-14.5); RDW Standard Deviation 47.1 fL (36.4-46.3); Red Blood Count 4.24 M/uL (4.2-5.4); White Blood Count 13.29 K/uL (4.8-10.8)
[2019-08-06 08:22] VITALS: O2SAT 97
[2019-08-06] MEDS: PRENATAL VITAMIN 1 TAB PO SCH (08:28)
[2019-08-06] MEDS: DOCUSATE SODIUM 100 MG CAP PO SCH ×2 (08:28→20:54)
--- NOTE | 2019-08-06 11:52 | Obstetrical Progress Note ---
Date of Service August 06, 2019 Assessment & Plan Admission and Anticipated Discharge Date Admission Date: August 05, 2019 Physical Exam Physical Exam: abdomen soft and non tender no calf tenderness ambulating well vaginal bleeding scant hgb 13.2 Results & Data ([facility]) Vital Signs (Past 12 Hours) Vital Signs Temp Pulse Pulse Resp BP Pulse Ox 08/06/19 11:30 36.5 C 74 18 114/73 97 08/06/19 07:15 36.5 C 67 18 110/69 97 08/06/19 05:00 36.3 C L 71 18 104/63 95
[2019-08-06] MEDS ORDERED: bisacodyL 5 MG TABEC PO SCH (20:00)
[2019-08-07] MEDS: IBUPROFEN 600 MG TAB PO PRN (05:22)
[2019-08-07] MEDS ORDERED: bisacodyL 10 MG SUPP PR PRN (06:00)
[2019-08-07 06:23] LABS: Hematocrit (blood only) 38.5 % (37-47); Hemoglobin 12.5 g/dL (12.0-16.0)
[2019-08-07 08:02] VITALS: BP 124/72; PULSE 69; TEMP 98.2
[2019-08-07] MEDS: PRENATAL VITAMIN 1 TAB PO SCH (08:36)
[2019-08-07] MEDS: DOCUSATE SODIUM 100 MG CAP PO SCH (08:36)
--- NOTE | 2019-08-07 08:58 | Obstetrical Progress Note ---
Date of Service August 07, 2019 Assessment & Plan Admission and Anticipated Discharge Date Admission Date: August 05, 2019 Physical Exam Physical Exam: abdomen soft and non tender no calf tenderness ambulating well vaginal bleeding scant hgb 12.5 Results & Data ([facility]) Vital Signs (Past 12 Hours) Vital Signs Temp Pulse Resp BP 08/07/19 07:35 36.8 C 69 18 124/72 08/07/19 00:30 36.6 C 75 20 144/84 H
== END 2019-08-07 10:18 | disposition home or self-care (01) | DRG 807 ==
LOC: 4S1 08:10 → 4S2 19:08